=== PATIENT | female | born 1990 | race African-American/Black ===

== ENCOUNTER 2018-01-16 14:37 | Emergency (ER) | payer MEDICAID ==
[~2018-01-16] VITALS: Ht 170.2 cm; Wt 99.0 kg
[2018-01-16 15:35] LABS: BASOPHILS % 0.6 % (0.0-2.0); EOSINOPHILS % 0.8 % (0.0-5.0); HEMATOCRIT. 36.5 % (36.0-48.0); HEMOGLOBIN. 12.6 g/dL (12.0-16.0); LYMPHOCYTES % 26.5 % (20.0-50.0); MEAN CORPUSCULAR HEMOGLOBIN 30.9 pg (28.0-32.0); MEAN CORPUSCULAR VOLUME 89.4 fL (81.0-99.0); MEAN PLATELET VOLUME 6.8 fl (7.4-10.4); MONOCYTES % 5.4 % (2.0-8.0); NEUTROPHILS % 66.7 % (40.0-76.0); PLATELET 353 x1000/uL (130-400); RED BLOOD CELL COUNT 4.08 mill/uL (4.2-5.4); RED CELL DISTRIBUTION WIDTH 15.5 % (11.6-14.6)
[2018-01-16 15:36] LABS: CHLORIDE 108 mEq/L (98-107)
[2018-01-16 15:37] LABS: PROTHROMBIN TIME 10.3 sec (9.4-11.6)
[2018-01-16 16:01] LABS: B-HCG QUANTITATIVE 59757 mIU/mL (<3)
[2018-01-16] MEDS ORDERED: SODIUM CHLORIDE 0.9% 1,000 ML IV ONE (18:49)
[2018-01-16] MEDS ORDERED: MORPHINE SULFATE 4 MG/ML CPJ (NOT FOR IM USE) IV ONE (19:00)
[2018-01-16] MEDS ORDERED: ONDANSETRON HCL 4MG/2ML VIAL IV ONE (19:00)
[2018-01-16 19:04] LABS: CLARITY URINE CLEAR (CLEAR); COLOR URINE YELLOW (YELLOW); KETONES URINE NEGATIVE (NEGATIVE); LEUKOCYTE ESTERASE URINE NEGATIVE (NEGATIVE); NITRITE URINE NEGATIVE (NEGATIVE); OCCULT BLOOD URINE NEGATIVE (NEGATIVE); PH URINE 6.5 (4.5-8.0); PROTEIN URINE TRACE (NEGATIVE); SPECIFIC GRAVITY URINE 1.023 (1.005-1.030)
[2018-01-16] MEDS ORDERED: ACETAMINOPHEN 325MG TABLET PO ONE (22:30)
[2018-01-17 01:01] VITALS: BP 110/62
== END 2018-01-17 01:06 | disposition home or self-care (01) ==
LOC: ER 14:47
DX: O20.0 Threatened abortion (principal); N83.209 Unspecified ovarian cyst, unspecified side; Z3A.16 16 weeks gestation of pregnancy
CPT/HCPCS: 36415; 72195; 74181; 76805; 80053; 80185; 81003; 81025; 83690; 84702; 85025; 85610; 86850; 86900; 86901; 96361; 96374; 96375; 99285; J2270; J2405; J7030; Z7610